=== PATIENT | male | born 1995 | race Two or more races ===

== ENCOUNTER 2021-12-22 07:53 | Outpatient (CLI) | payer OTHER | END 2021-12-22 07:54 | disposition home or self-care (01) | LOC: LAB 07:53 | PROVIDERS: ATTEND Obstetrics & Gynecology | DX: Z20.828 Contact with and (suspected) exposure to other viral communicable diseases (principal); Z20.818 Contact with and (suspected) exposure to other bacterial communicable diseases ==

== ENCOUNTER 2023-03-12 20:44 | Emergency (ER) | payer OTHER ==
[~2023-03-12] VITALS: Ht 165.1 cm; Wt 77.1 kg
[2023-03-12] MEDS ORDERED: DICLOFENAC SODI75 MG PO (21:44)
== END 2023-03-12 22:32 | disposition home or self-care (01) ==
LOC: ER 20:44
DX: S13.4XXA Sprain of ligaments of cervical spine, initial encounter (principal); V49.9XXA Car occupant (driver) (passenger) injured in unspecified traffic accident, initial encounter; Y93.9 Activity, unspecified; Y92.9 Unspecified place or not applicable; Y99.9 Unspecified external cause status